=== PATIENT | female | born 1950 | race Caucasian/White ===

== ENCOUNTER 2017-06-08 09:28 | Inpatient (IN) | payer MEDICARE, MEDICAID ==
[2017-06-08] MEDS ORDERED: Ondansetron INJ* 2 MG/ML VIAL IV ONE ×3 (10:50→11:48)
[2017-06-08] MEDS ORDERED: NS 0.9% 1000 ML* 1,000 ML IV ONE ×2 (10:50→10:59)
[2017-06-08 11:25] LABS: Hematocrit 47 % (35-47); Hemoglobin 15.3 g/dl (12.0-16.0); Mean Corpuscular HGB Conc 33 g/dl (31-36); Mean Corpuscular Hemoglobin 29 pg (27-31); Mean Corpuscular Volume 89 fL (80-97); Mean Platelet Volume 7 um3 (7.4-10.4); Red Blood Count 5.33 10^6/ul (4.0-5.4); Red Cell Distribution Width 13 % (10.5-15); White Blood Count 17.2 10^3/ul (3.5-10.8)
[2017-06-08 11:37] LABS: Albumin 3.9 g/dL (3.2-5.2); BUN/Creatinine Ratio 13.7 (8-20); C Reactive Protein 32.11 mg/L (< 5.00); Calcium 8.7 mg/dL (8.6-10.3); EGFR African American 75.7 (>60); EGFR Non-African American 58.9 (>60); Globulin 2.5 g/dL (2-4); Magnesium 1.9 mg/dL (1.9-2.7); Potassium 3.7 mmol/L (3.5-5.0); Total Bilirubin 0.7 mg/dL (0.2-1.0); Total Protein 6.4 g/dL (6.4-8.9)
[2017-06-08 11:38] LABS: Troponin I 0.01 ng/mL (<0.04)
[2017-06-08] MEDS ORDERED: Ondansetron INJ* 2 MG/ML VIAL ONE (11:47)
[2017-06-08 12:07] LABS: Urine Bacteria Absent (Absent); Urine Bilirubin Negative (Negative); Urine Glucose Negative (Negative); Urine Nitrite Negative (Negative)
[2017-06-08] MEDS ORDERED: Iodixanol* (CONTRAST) 320 MG/ML 100 ML SDV IV ONE (13:19)
--- NOTE | 2017-06-08 13:54 | RAD ---
Indication: History of small bowel obstruction, abdominal pain. Contrast: Administered 90.9 ml of VISAPAQUE 320 mgi/ml CT of the abdomen and pelvis was performed after oral and IV contrast administration. Coronal and sagittal reconstructed images were obtained. Lung bases demonstrate no pleural fluid, nodules or masses. Heart is of normal size without evidence of pericardial effusion. Liver is normal in size. No focal lesions or intrahepatic duct dilatation is noted. The spleen is normal in size. The pancreas demonstrates no mass or pancreatic duct dilatation. No adrenal masses are noted. The kidneys demonstrate symmetric nephrograms. Cyst is noted in the lower pole of the left kidney measuring 5 cm. Atherosclerotic aorta is noted. No retroperitoneal adenopathy is noted. The spleen is normal in size. Small bowel demonstrates no abnormal dilatation. There is submucosal edema in the transverse colon near the splenic flexure extending to the descending colon and sigmoid colon. This may represent an element of colitis. Additionally there is diverticula in the sigmoid colon with wall thickening. No definite peridiverticular abscess is noted. Diverticulitis is not excluded. No free fluid is identified. No evidence of small bowel obstruction is noted. IMPRESSION: LONG SEGMENT SUBMUCOSAL EDEMA IN THE TRANSVERSE COLON EXTENDING TO THE DESCENDING COLON WITH PERICOLONIC INFILTRATION OF FAT SUSPICIOUS FOR COLITIS. ADDITIONALLY THERE ARE DIVERTICULA WITH WALL THICKENING IN THE SIGMOID COLON WHICH MAY REPRESENT UNDERLYING DIVERTICULITIS. NO PERIDIVERTICULAR OR PERICOLONIC ABSCESS IS NOTED. NO FREE FLUID IS NOTED IN THE PELVIS.
[2017-06-08] MEDS ORDERED: Ciprofloxacin 400MG IVPREMIX(* 400 MG/200 ML BAG IVPB ONE (14:03)
[2017-06-08] MEDS ORDERED: metroNIDAZOLE IV 500 MG/100ML* 500 MG/100 ML BAG IVPB ONE (14:04)
[2017-06-08] MEDS ORDERED: Metoclopramide IV* 5 MG/ML 2 ML VIAL IV ONE (14:05)
[2017-06-08] MEDS ORDERED: Morphine INJ* 10 MG/ML 1 ML SYRINGE IV ONE (14:05)
[2017-06-08] MEDS ORDERED: Ondansetron INJ* 2 MG/ML VIAL IV PRN (15:19)
[2017-06-08] MEDS ORDERED: Morphine INJ* 4 MG/ML 1 ML SYRINGE IV PRN (15:19)
--- NOTE | 2017-06-08 18:15 | ED ---
Davis Paulino Rebecca, scribed for Samuel Garcia MD on 06/08/17 at 1058 . Abdominal Pain/Female - HPI Summary HPI Summary: Pt is a 67 y/o F who presents to ED c/o abd pain. Pain began 2 nights ago at 0300 after an episode of diarrhea. Pain was initially severe, ranked 9/10 but has improved since onset, currently being moderate, ranked 6/10. Pain is in the LLQ with new onset radiation to the back. Sx aggravated and alleviated by nothing. Additionally c/o rectal bleeding, diarrhea 2 nights ago, constipation since episode of diarrhea, nausea, fever, chills and decreased PO intake. Rectal blood is "pure red" and the mucous is dark. Denies CP, SOB. Reports that she is not passing gas. Last colonoscopy was last summer with Kayden Mcfadden. is not on blood thinners. PMHx bowel obstruction requiring 2 surgeries in 1988. - History of Current Complaint Chief Complaint: EDAbdPain Stated Complaint: ABD PAIN/BLOOD IN STOOL Time Seen by Provider: 06/08/17 10:46 Hx Obtained From: Patient Onset/Duration: Lasting Days - 2 days, Still Present Severity Initially: Severe - 9/10 Severity Currently: Moderate Pain Intensity: 6 Pain Scale Used: 0-10 Numeric Location: Discrete At: LLQ Radiates: Yes Radiates to: Back Aggravating Factor(s): Nothing Alleviating Factor(s): Nothing Associated Signs and Symptoms: Positive: Fever, Constipation, Nausea, Diarrhea - one episode Allergies/Adverse Reactions: Allergies Allergy/AdvReac Type Severity Reaction Status Date / Time Pravastatin Allergy Muscle Ache Verified 06/08/17 10:53 Tetracycline Allergy Vomiting Verified 06/08/17 10:53 Home Medications: Home Medications Albuterol/Ipratropium RESP(NF) [Combivent Respimat(NF)] 1 puff INH BID 06/08/17 [History Confirmed 06/08/17] Bupropion XL* [Wellbutrin XL *] 150 mg PO DAILY 06/08/17 [History Confirmed 05/18] Lisinopril TAB* [Prinivil TAB*] 5 mg PO DAILY 06/08/17 [History Confirmed ] Mometasone 220 MCG MDI * [Asmanex 220 MCG MDI *] 1 puff INH BID 06/08/17 [ History Confirmed 06/08/17] PMH/Surg Hx/FS Hx/Imm Hx Cardiovascular History: Reports: Hx Hypercholesterolemia - borderline, Hx Hypertension Respiratory History: Reports: Hx Chronic Obstructive Pulmonary Disease (COPD) GI History: Reports: Hx Obstructive Bowel - Surgical History Surgery Procedure, Year, and Place: 2 bowel obstruction surgeries in 1988 Infectious Disease History: No Infectious Disease History: Denies: Traveled Outside the [place] in Last 30 Days - Family History Known Family History: Positive: Other - Cancer - Social History Alcohol Use: None Substance Use Type: Reports: None Smoking Status (MU): Former Smoker - Quit 3.5 years ago Review of Systems Positive: Fever, Chills Negative: Chest Pain Negative: Shortness Of Breath Positive: Abdominal Pain - LLQ, Diarrhea - one episode 2 nights ago, Nausea, Other - Constipation since episode of diarrhea, decreased PO intake Positive: other - Rectal bleeding All Other Systems Reviewed And Are Negative: Yes Physical Exam - Summary Physical Exam Summary: VITAL SIGNS: Reviewed. GENERAL: Patient is a well-developed and nourished female who is lying comfortable in the stretcher. ~Patient is not in any acute respiratory distress. HEAD AND FACE: Normocephalic and atraumatic. EYES: PERRLA, EOMI x 2, No injected conjunctiva. EARS: Hearing grossly intact. Ear canals and tympanic membranes are WNL. MOUTH: Oropharynx reveals dry mucous membranes. NECK: Supple, trachea is midline, no adenopathy, no JVD. CHEST: Symmetric, no tenderness at palpation LUNGS: Clear to auscultation bilaterally. No wheezing or crackles. CVS: RRR, S1 and S2 present, no murmurs or gallops appreciated. ABDOMEN: Soft, non-tender. No signs of distention. Decreased bowel sounds throughout. No rebound no guarding, and no masses palpated. No abdominal bruit or pulsations. Well healed surgical scar in the middle of the abdomen EXTREMITIES: FROM in all major joints, no edema, no cyanosis or clubbing. NEURO: Alert and oriented x 3. No acute neurological deficits. Speech is normal. SKIN: Dry and warm Triage Information Reviewed: Yes Vital Signs On Initial Exam: Initial Vitals Temp Pulse Resp BP Pulse Ox 97.7 F 110 16 152/101 94 06/08/17 09:34 06/08/17 09:34 06/08/17 09:34 06/08/17 09:34 06/08/17 09:34 Vital Signs Reviewed: Yes Diagnostics - Vital Signs Vital Signs Temp Pulse Resp BP Pulse Ox 06/08/17 10:47 95 20 94 06/08/17 10:46 151/85 06/08/17 10:42 99.4 F 98 16 151/85 94 06/08/17 09:34 97.7 F 110 16 152/101 94 - Laboratory Lab Results: Lab Results 06/08/17 06/08/17 06/08/17 Range/Units 11:11 11:11 11:11 WBC 17.2 H (3.5-10.8) 10^3/ul RBC 5.33 (4.0-5.4) 10^6/ul Hgb 15.3 (12.0-16.0) g/dl Hct 47 (35-47) % MCV 89 (80-97) fL MCH 29 (27-31) pg MCHC 33 (31-36) g/dl RDW 13 (10.5-15) % Plt Count 200 (150-450) 10^3/ul MPV 7 L (7.4-10.4) um3 Neut % (Auto) 66.6 (38-83) % Lymph % (Auto) 26.8 (25-47) % [place] % (Auto) 6.0 (1-9) % Eos % (Auto) 0.1 (0-6) % Baso % (Auto) 0.5 (0-2) % Absolute Neuts (auto) 11.4 H (1.5-7.7) 10^3/ul Absolute Lymphs (auto) 4.6 (1.0-4.8) 10^3/ul Absolute Monos (auto) 1.0 H (0-0.8) 10^3/ul Absolute Eos (auto) 0 (0-0.6) 10^3/ul Absolute Basos (auto) 0.1 (0-0.2) 10^3/ul Absolute Nucleated RBC 0 10^3/ul Nucleated RBC % 0 Sodium 134 (133-145) mmol/L Potassium 3.7 (3.5-5.0) mmol/L Chloride 102 (101-111) mmol/L Carbon Dioxide 26 (22-32) mmol/L Anion Gap 6 (2-11) mmol/L BUN 13 (6-24) mg/dL Creatinine 0.95 (0.51-0.95) mg/dL Est GFR ( Amer) 75.7 (>60) Est GFR (Non-Af Amer) 58.9 (>60) BUN/Creatinine Ratio 13.7 (8-20) Glucose 113 H (70-100) mg/dL Lactic Acid 0.9 (0.5-2.0) mmol/L Calcium 8.7 (8.6-10.3) mg/dL Magnesium 1.9 (1.9-2.7) mg/dL Total Bilirubin 0.70 (0.2-1.0) mg/dL AST 20 (13-39) U/L ALT 14 (7-52) U/L Alkaline Phosphatase 76 (34-104) U/L Troponin I 0.01 (<0.04) ng/mL C-Reactive Protein 32.11 H (< 5.00) mg/L Total Protein 6.4 (6.4-8.9) g/dL Albumin 3.9 (3.2-5.2) g/dL Globulin 2.5 (2-4) g/dL Albumin/Globulin Ratio 1.6 (1-3) Amylase 80 (29-103) U/L Lipase 25 (11.0-82.0) U/L Urine Color Urine Appearance Urine pH (5-9) Ur Specific [place] (1.010-1.030) Urine Protein (Negative) Urine Ketones (Negative) Urine Blood (Negative) Urine Nitrate (Negative) Urine Bilirubin (Negative) Urine Urobilinogen (Negative) Ur Leukocyte Esterase (Negative) Urine WBC (Auto) (Absent) Urine RBC (Auto) (Absent) Ur Squamous Epith Cells (Absent) Urine Bacteria (Absent) Urine Glucose (Negative) 06/08/17 Range/Units 11:28 WBC (3.5-10.8) 10^3/ul RBC (4.0-5.4) 10^6/ul Hgb (12.0-16.0) g/dl Hct (35-47) % MCV (80-97) fL MCH (27-31) pg MCHC (31-36) g/dl RDW (10.5-15) % Plt Count (150-450) 10^3/ul MPV (7.4-10.4) um3 Neut % (Auto) (38-83) % Lymph % (Auto) (25-47) % [place] % (Auto) (1-9) % Eos % (Auto) (0-6) % Baso % (Auto) (0-2) % Absolute Neuts (auto) (1.5-7.7) 10^3/ul Absolute Lymphs (auto) (1.0-4.8) 10^3/ul Absolute Monos (auto) (0-0.8) 10^3/ul Absolute Eos (auto) (0-0.6) 10^3/ul Absolute Basos (auto) (0-0.2) 10^3/ul Absolute Nucleated RBC 10^3/ul Nucleated RBC % Sodium (133-145) mmol/L Potassium (3.5-5.0) mmol/L Chloride (101-111) mmol/L Carbon Dioxide (22-32) mmol/L Anion Gap (2-11) mmol/L BUN (6-24) mg/dL Creatinine (0.51-0.95) mg/dL Est GFR ( Amer) (>60) Est GFR (Non-Af Amer) (>60) BUN/Creatinine Ratio (8-20) Glucose (70-100) mg/dL Lactic Acid (0.5-2.0) mmol/L Calcium (8.6-10.3) mg/dL Magnesium (1.9-2.7) mg/dL Total Bilirubin (0.2-1.0) mg/dL AST (13-39) U/L ALT (7-52) U/L Alkaline Phosphatase (34-104) U/L Troponin I (<0.04) ng/mL C-Reactive Protein (< 5.00) mg/L Total Protein (6.4-8.9) g/dL Albumin (3.2-5.2) g/dL Globulin (2-4) g/dL Albumin/Globulin Ratio (1-3) Amylase (29-103) U/L Lipase (11.0-82.0) U/L Urine Color Straw Urine Appearance Clear Urine pH 6.0 (5-9) Ur Specific [place] 1.004 L (1.010-1.030) Urine Protein Negative (Negative) Urine Ketones Negative (Negative) Urine Blood 2+ H (Negative) Urine Nitrate Negative (Negative) Urine Bilirubin Negative (Negative) Urine Urobilinogen Negative (Negative) Ur Leukocyte Esterase 2+ H (Negative) Urine WBC (Auto) Trace(0-5/hpf) (Absent) Urine RBC (Auto) 1+(3-5/hpf) H (Absent) Ur Squamous Epith Cells Present H (Absent) Urine Bacteria Absent (Absent) Urine Glucose Negative (Negative) Result Diagrams: 06/08/17 11:11 06/08/17 11:11 Lab Statement: Any lab studies that have been ordered have been reviewed, and results considered in the medical decision making process. - CT CT Abd/Pel CT Interpretation Completed By: Radiologist - LONG SEGMENT SUBMUCOSAL EDEMA IN THE TRANSVERSE COLON EXTENDING TO THE DESCENDING COLON WITH PERICOLONIC INFILTRATION OF FAT SUSPICIOUS FOR COLITIS. ADDITIONALLY THERE ARE DIVERTICULA WITH WALL THICKENING IN THE SIGMOID COLON WHICH MAY REPRESENT UNDERLYING DIVERTICULITIS. NO PERIDIVERTICULAR OR PERICOLONIC ABSCESS IS NOTED. NO FREE FLUID IS NOTED IN THE PELVIS. - EKG 1127 Cardiac Rate: NL - 99 bpm EKG Rhythm: Sinus Rhythm EKG Interpretation: ST depressions in V4, V5, V6 Re-Evaluation - Re-Evaluation First Eval Re-Evaluation Time: 14:04 Change: Unchanged Comment: Still in a lot of pain and experiencing nausea. Discussed CT results with the pt. Abdominal Pain Fem Course/Dx - Course Course Of Treatment: Pt is a 67 y/o F who presents to ED c/o abd pain. Pain began 2 nights ago at 0300 after an episode of diarrhea. Pain was initially severe, ranked 9/10 but has improved since onset, currently being moderate, ranked 6/10. Pain is in the LLQ with new onset radiation to the back. Sx aggravated and alleviated by nothing. Additionally c/o rectal bleeding, diarrhea 2 nights ago, constipation since episode of diarrhea, nausea, fever, chills and decreased PO intake. Rectal blood is "pure red" and the mucous is dark. Denies CP, SOB. Reports that she is not passing gas. Last colonoscopy was last summer with Kayden Mcfadden. is not on blood thinners. PMHx bowel obstruction requiring 2 surgeries in 1988. Test results show a WBC of 17.2 without any bands, glucose of 113, CRP of 32.1 and UA is contaminated therefore we will send for urine cultures. In the ED course, the pt was given fluids, Zofran for N/V, morphine for the pain. She continues to have N/V, therefore the pt was given Reglan. The Abd/Pel CT reveals LONG SEGMENT SUBMUCOSAL EDEMA IN THE TRANSVERSE COLON EXTENDING TO THE DESCENDING COLON WITH PERICOLONIC INFILTRATION OF FAT SUSPICIOUS FOR COLITIS. ADDITIONALLY THERE ARE DIVERTICULA WITH WALL THICKENING IN THE SIGMOID COLON WHICH MAY REPRESENT UNDERLYING DIVERTICULITIS. NO PERIDIVERTICULAR OR PERICOLONIC ABSCESS IS NOTED. NO FREE FLUID IS NOTED IN THE PELVIS.. Seeing as how this shows that the pt has colitis and diverticulitis, the pt was started on Ciprofloxacin and Flagyl. At this time I disclosed the case with Dr. Delaney who accepted the pt for admission. The pt is hemodynamically stable and A&Ox3. - Diagnoses Provider Diagnoses: Colitis, Diverticulitis - Provider Notifications Discussed Care Of Patient With: Manfred Delaney Time Discussed With Above Provider: 14:35 Instructed by Provider To: Other - Accepts pt for admission. Discharge - Discharge Plan Condition: Good Disposition: ADMITTED TO [facility] documentation as recorded by the [place] Rebecca accurately reflects the service I personally performed and the decisions made by , Samuel Garcia MD.
[2017-06-08] MEDS: NS 0.9% 1000 ML* 1,000 ML IV SCH (18:47)
--- NOTE | 2017-06-08 20:21 | HP ---
HOSPITAL MEDICINE HISTORY AND PHYSICAL: DATE OF ADMISSION: 06/08/17 PRIMARY CARE PHYSICIAN: None. ATTENDING PHYSICIAN: Manfred Delaney MD * (dictation provided by Tosha Stephens NP ). CHIEF COMPLAINT: Nausea, vomiting, abdominal pain, and bloody diarrhea. HISTORY OF PRESENT ILLNESS: Ms. Castañeda is a 67-year-old female with a past medical history of what she describes as intestinal twisting with surgeries x2, as well as a hysterectomy, hypertension, and anxiety, who presents today to the hospital with concern for nausea, vomiting, abdominal pain and bright red blood per rectum. Ms. Castañeda states she was in her normal state of health with no acute complaints up until 3 days ago. Three days ago, she developed abdominal pain in the left upper quadrant associated with nausea and vomiting. She began to have some bright red blood per rectum. She was seen in the emergency room at [facility] in [place] yesterday. They advised her that she should follow with Gastroenterology and the patient called and the appointment was planned for Thursday; however, in the ensuing 24 hours, the patient continued to have worsening pain with what she felt were fevers, although she did not take her temperature. She also had persistent nausea, vomiting and bloody stool. In the emergency room, Ms. Castañeda had white blood cell count elevated to 17.2. She is afebrile at this point. Her heart rate is slightly up to about 100 with blood pressure at 161/97. The remainder of her labs are unremarkable. She had an abdomen and pelvis CT, which showed "long submucosal edema in the transverse colon extending to the descending colon with pericolonic infiltration and fat suspicious for colitis. There was also concern for possible underlying diverticulitis." PAST MEDICAL HISTORY: 1. "Intestinal twisting" with surgeries x2. 2. Hysterectomy at the age of 28. 3. Hypertension. 4. Anxiety. 5. Skin cancer. MEDICATIONS: 1. Combivent 1 puff inhaled b.i.d. 2. Bupropion XL 150 mg p.o. daily. 3. Lisinopril 5 mg p.o. daily. 4. Mometasone 220 mcg 1 puff inhaled b.i.d. ALLERGIES: PRAVASTATIN and TETRACYCLINE. FAMILY HISTORY: The patient reports her mother had breast cancer and a mastectomy. Sister related to ovarian cancer, another sister has vaginal cancer. Her dad related to leukemia. SOCIAL HISTORY: The patient is a long-term smoker, but quit 3-1/2 years ago. There is no report of alcohol or drug use. She states her daughter, Anabel, would be the healthcare proxy. REVIEW OF SYSTEMS: A 14-point review of systems was completed with Ms. Castañeda today, and all those not mentioned above were negative. PHYSICAL EXAMINATION GENERAL: Ms. Castañeda is sleeping when I walk into the room, but she awakens easily to voice. VITAL SIGNS: Temperature 99.4, heart rate 96, respiratory rate 17, O2 saturation 98% on room air, blood pressure 161/97. LUNGS: Clear to auscultation bilaterally with no accessory muscle use and good aeration. HEART: S1, S2. No murmur, rub, or gallop, and regular. ABDOMEN: Soft. There is tenderness along the left side, upper and lower quadrant. Bowel sounds are hypoactive. There is no rebound, tenderness or guarding. EXTREMITIES: No cyanosis or edema. NEUROLOGIC: She is alert and oriented x3. She moves all extremities equally. There is no facial asymmetry or focal weakness. Extraocular movements are intact. SKIN: Intact. DIAGNOSTIC STUDIES/LAB DATA: WBC 17.2, hemoglobin 15.3, hematocrit 47, platelet count 200,000. Sodium 134, potassium 3.7, chloride 102, serum bicarbonate 26, BUN 13, creatinine 0.95, glucose 113, lactic acid 0.9. Troponin 0.01. CRP 32.11. Lipase 25, amylase 80. Urine shows 2+ leuk esterase , but no bacteria and present squamous cells. EKG shows sinus rhythm with the heart rate almost 100, but no evidence of ischemia. ASSESSMENT/PLAN: Ms. Castañeda is a 67-year-old female with a past medical history of intestinal surgery due to intestinal torsion as well as a hysterectomy and hypertension, who presents today to the hospital with concern for nausea, vomiting, abdominal pain and bright red blood per rectum. Our plans are for inpatient admission as I expect her length of stay to be greater than 2 days for the followin. Nausea, vomiting, abdominal pain, bright red blood per rectum: I suspect that these symptoms are secondary to infectious colitis. The patient's white blood cell count is elevated. She reports feeling feverish at home. She also has a CT scan that has inflammatory changes consistent with colitis in the colon. Our plans are for admission for IV fluids, and Cipro and Flagyl for antibiotic coverage. The patient will have ice chips only through the evening and we are going to advance diet when she is improved clinically. Fortunately, she is not febrile here. Her vital signs are stable. Her white blood cell count is elevated. We will recheck that in the morning. Her CRP is only 32.11. The patient does not know of any recent ingestion that was suspicious for possibly causing an infectious colitis, but stool cultures will be sent. 2. Question UTI. Suspect contamination. Wait urine cultures. Patient will be on cipro for coverage of infectious colitis which should cover for UTI as well if present. 2. Hypertension. Plan to hold lisinopril during an acute illness. 3. Asthma. Hold mometasone, but the patient can have Combivent if needed. 4. Depression. Plan to hold bupropion while she is acutely ill. 5. DVT prophylaxis, heparin subcu. 6. Disposition to the medical floor. TIME SPENT: Approximately 60 minutes was spent on the admission of this patient ; more than half time was spent with the patient at the bedside reviewing the events leading up to this hospitalization, performing the physical examination, and reviewing my plan of care. TOSHA STEPHENS NP [id number]/[facility] #: [id number] APRIL
[2017-06-08] MEDS: Heparin VIAL(*) 5000 UNITS/ML VIAL (FIVE THOUSAND) SUBCUT SCH (21:19)
[2017-06-08] MEDS: metroNIDAZOLE IV 500 MG/100ML* 500 MG/100 ML BAG IVPB SCH (23:58)
[2017-06-09] MEDS ORDERED: Albuterol HFA INHALER* 8 gm MDI INH PRN (00:15)
[2017-06-09] MEDS ORDERED: Albuterol/Ipratropium NEB.SOL* Albuterol 2.5 MG/Ipratropium 0.5 MG 3 ML INH PRN (00:44)
[2017-06-09] MEDS ORDERED: Mometasone 220 MCG MDI INH SCH ×3 (01:00→22:00)
[2017-06-09] MEDS: Ciprofloxacin 400MG IVPREMIX(* 400 MG/200 ML BAG IVPB SCH ×2 (02:24→14:31)
[2017-06-09] MEDS: Heparin VIAL(*) 5000 UNITS/ML VIAL (FIVE THOUSAND) SUBCUT SCH ×3 (05:28→20:36)
[2017-06-09 06:00] LABS: Hematocrit 40 % (35-47); Hemoglobin 13.1 g/dl (12.0-16.0); Mean Corpuscular HGB Conc 33 g/dl (31-36); Mean Corpuscular Hemoglobin 29 pg (27-31); Mean Corpuscular Volume 90 fL (80-97); Mean Platelet Volume 7 um3 (7.4-10.4); Red Blood Count 4.49 10^6/ul (4.0-5.4); Red Cell Distribution Width 13 % (10.5-15); White Blood Count 16.4 10^3/ul (3.5-10.8)
[2017-06-09 06:16] LABS: Potassium 3.6 mmol/L (3.5-5.0)
[2017-06-09 06:17] LABS: Calcium 7.8 mg/dL (8.6-10.3); EGFR African American 99.4 (>60); EGFR Non-African American 77.3 (>60)
[2017-06-09] MEDS: NS 0.9% 1000 ML* 1,000 ML IV SCH ×2 (07:40→22:00)
[2017-06-09] MEDS: metroNIDAZOLE IV 500 MG/100ML* 500 MG/100 ML BAG IVPB SCH ×2 (07:40→16:40)
--- NOTE | 2017-06-09 08:32 | PN ---
Subjective Date of Service: 06/09/17 Interval History: Patient seen and examined at bedside. Ms. Castañeda reports 3 days of abdominal pain with n/v that has worsened in severity. She also reports BRBPR. She does feel as if her pain and n/v symptoms have improved with initiation of antibiotics. She still has some abdominal pain but less n/v; still c/o BRBPR. She does not feel hungry. Denies fever/chills, CP, SOB. Family History: Unchanged from Admission Social History: Unchanged from Admission Past Medical History: Unchanged from Admission Objective Active Medications: Albuterol (Ventolin Hfa Inhaler*) 2 puff INH Q4H PRN PRN Reason: SOB/WHEEZING Last Admin: 06/09/17 00:39 Dose: 2 puff Albuterol/Ipratropium (Duoneb (Albuterol 2.5 Mg/Ipratropium 0.5 Mg)) 1 neb INH Q6H PRN PRN Reason: SOB/WHEEZING Last Admin: 06/09/17 08:09 Dose: 1 neb Heparin Sodium (Porcine) (Heparin Vial(*)) 5,000 units SUBCUT Q8HR AIDEE Last Admin: 06/09/17 05:28 Dose: 5,000 units Sodium Chloride (Ns 0.9% 1000 Ml*) 1,000 mls @ 100 mls/hr IV PER RATE [facility] Last Admin: 06/09/17 07:40 Dose: 100 mls/hr Ciprofloxacin/Dextrose (Cipro 400 Mg Ivpremix(*)) 400 mg in 200 mls @ 200 mls/ hr IVPB Q12H AIDEE Last Admin: 06/09/17 02:24 Dose: 200 mls/hr Metronidazole/Sodium Chloride (Flagyl 500 Mg Ivpb*) 500 mg in 100 mls @ 100 mls /hr IVPB Q8H AIDEE Last Admin: 06/09/17 07:40 Dose: 100 mls/hr Mometasone Furoate (Asmanex 220 Mcg Mdi *) 2 puff INH BEDTIME AIDEE PRN Reason: Protocol Morphine Sulfate (Morphine Inj (Syringe)*) 4 mg IV Q4H PRN PRN Reason: PAIN Last Admin: 06/08/17 17:05 Dose: 4 mg Ondansetron HCl (Zofran Inj*) 4 mg IV Q4H PRN PRN Reason: nausea Vital Signs 06/08/17 06/08/17 06/08/17 15:35 17:05 19:27 Temperature 98.2 F 97.5 F Pulse Rate 89 92 Respiratory 18 18 20 Rate Blood Pressure 150/89 135/77 (mmHg) O2 Sat by Pulse 99 98 Oximetry 06/08/17 06/08/17 06/08/17 19:36 20:00 23:15 Temperature 98.5 F Pulse Rate 100 Respiratory 18 20 16 Rate Blood Pressure 126/69 (mmHg) O2 Sat by Pulse 98 Oximetry 06/08/17 06/09/17 06/09/17 23:43 03:47 08:00 Temperature 98.5 F 98.1 F Pulse Rate 100 101 Respiratory 16 20 16 Rate Blood Pressure 126/69 115/69 (mmHg) O2 Sat by Pulse 98 99 Oximetry 06/09/17 06/09/17 08:02 08:15 Temperature 98.2 F Pulse Rate 102 102 Respiratory 16 16 Rate Blood Pressure 122/71 (mmHg) O2 Sat by Pulse 98 99 Oximetry Oxygen Devices in Use Now: Nasal Cannula Appearance: Female patient, sitting on edge of bed, in NAD Eyes: No Scleral Icterus Ears/Nose/Mouth/Throat: Clear Oropharnyx, Mucous Membranes Moist Neck: NL Appearance and Movements; NL JVP Respiratory: Symmetrical Chest Expansion and Respiratory Effort, Clear to Auscultation Cardiovascular: NL Sounds; No Murmurs; No JVD, RRR Abdominal: - - BS present, tenderness with palpation to LUQ/LLQ, abd soft Extremities: No Edema Neurological: Alert and Oriented x 3, NL Muscle Strength and Tone Lines/Tubes/Other Access: Clean, Dry and Intact Peripheral IV Result Diagrams: 06/09/17 05:46 06/09/17 05:46 Additional Lab and Data: Lab Results 06/08/17 06/08/17 06/08/17 Range/Units 11:11 11:11 11:11 WBC 17.2 H (3.5-10.8) 10^3/ul RBC 5.33 (4.0-5.4) 10^6/ul Hgb 15.3 (12.0-16.0) g/dl Hct 47 (35-47) % MCV 89 (80-97) fL MCH 29 (27-31) pg MCHC 33 (31-36) g/dl RDW 13 (10.5-15) % Plt Count 200 (150-450) 10^3/ul MPV 7 L (7.4-10.4) um3 Neut % (Auto) 66.6 (38-83) % Lymph % (Auto) 26.8 (25-47) % [place] % (Auto) 6.0 (1-9) % Eos % (Auto) 0.1 (0-6) % Baso % (Auto) 0.5 (0-2) % Absolute Neuts (auto) 11.4 H (1.5-7.7) 10^3/ul Absolute Lymphs (auto) 4.6 (1.0-4.8) 10^3/ul Absolute Monos (auto) 1.0 H (0-0.8) 10^3/ul Absolute Eos (auto) 0 (0-0.6) 10^3/ul Absolute Basos (auto) 0.1 (0-0.2) 10^3/ul Absolute Nucleated RBC 0 10^3/ul Nucleated RBC % 0 Sodium 134 (133-145) mmol/L Potassium 3.7 (3.5-5.0) mmol/L Chloride 102 (101-111) mmol/L Carbon Dioxide 26 (22-32) mmol/L Anion Gap 6 (2-11) mmol/L BUN 13 (6-24) mg/dL Creatinine 0.95 (0.51-0.95) mg/dL Est GFR ( Amer) 75.7 (>60) Est GFR (Non-Af Amer) 58.9 (>60) BUN/Creatinine Ratio 13.7 (8-20) Glucose 113 H (70-100) mg/dL Lactic Acid 0.9 (0.5-2.0) mmol/L Calcium 8.7 (8.6-10.3) mg/dL Magnesium 1.9 (1.9-2.7) mg/dL Total Bilirubin 0.70 (0.2-1.0) mg/dL AST 20 (13-39) U/L ALT 14 (7-52) U/L Alkaline Phosphatase 76 (34-104) U/L Troponin I 0.01 (<0.04) ng/mL C-Reactive Protein 32.11 H (< 5.00) mg/L Total Protein 6.4 (6.4-8.9) g/dL Albumin 3.9 (3.2-5.2) g/dL Globulin 2.5 (2-4) g/dL Albumin/Globulin Ratio 1.6 (1-3) Amylase 80 (29-103) U/L Lipase 25 (11.0-82.0) U/L Urine Color Urine Appearance Urine pH (5-9) Ur Specific [place] (1.010-1.030) Urine Protein (Negative) Urine Ketones (Negative) Urine Blood (Negative) Urine Nitrate (Negative) Urine Bilirubin (Negative) Urine Urobilinogen (Negative) Ur Leukocyte Esterase (Negative) Urine WBC (Auto) (Absent) Urine RBC (Auto) (Absent) Ur Squamous Epith Cells (Absent) Urine Bacteria (Absent) Urine Glucose (Negative) 06/08/17 Range/Units 11:28 WBC (3.5-10.8) 10^3/ul RBC (4.0-5.4) 10^6/ul Hgb (12.0-16.0) g/dl Hct (35-47) % MCV (80-97) fL MCH (27-31) pg MCHC (31-36) g/dl RDW (10.5-15) % Plt Count (150-450) 10^3/ul MPV (7.4-10.4) um3 Neut % (Auto) (38-83) % Lymph % (Auto) (25-47) % [place] % (Auto) (1-9) % Eos % (Auto) (0-6) % Baso % (Auto) (0-2) % Absolute Neuts (auto) (1.5-7.7) 10^3/ul Absolute Lymphs (auto) (1.0-4.8) 10^3/ul Absolute Monos (auto) (0-0.8) 10^3/ul Absolute Eos (auto) (0-0.6) 10^3/ul Absolute Basos (auto) (0-0.2) 10^3/ul Absolute Nucleated RBC 10^3/ul Nucleated RBC % Sodium (133-145) mmol/L Potassium (3.5-5.0) mmol/L Chloride (101-111) mmol/L Carbon Dioxide (22-32) mmol/L Anion Gap (2-11) mmol/L BUN (6-24) mg/dL Creatinine (0.51-0.95) mg/dL Est GFR ( Amer) (>60) Est GFR (Non-Af Amer) (>60) BUN/Creatinine Ratio (8-20) Glucose (70-100) mg/dL Lactic Acid (0.5-2.0) mmol/L Calcium (8.6-10.3) mg/dL Magnesium (1.9-2.7) mg/dL Total Bilirubin (0.2-1.0) mg/dL AST (13-39) U/L ALT (7-52) U/L Alkaline Phosphatase (34-104) U/L Troponin I (<0.04) ng/mL C-Reactive Protein (< 5.00) mg/L Total Protein (6.4-8.9) g/dL Albumin (3.2-5.2) g/dL Globulin (2-4) g/dL Albumin/Globulin Ratio (1-3) Amylase (29-103) U/L Lipase (11.0-82.0) U/L Urine Color Straw Urine Appearance Clear Urine pH 6.0 (5-9) Ur Specific [place] 1.004 L (1.010-1.030) Urine Protein Negative (Negative) Urine Ketones Negative (Negative) Urine Blood 2+ H (Negative) Urine Nitrate Negative (Negative) Urine Bilirubin Negative (Negative) Urine Urobilinogen Negative (Negative) Ur Leukocyte Esterase 2+ H (Negative) Urine WBC (Auto) Trace(0-5/hpf) (Absent) Urine RBC (Auto) 1+(3-5/hpf) H (Absent) Ur Squamous Epith Cells Present H (Absent) Urine Bacteria Absent (Absent) Urine Glucose Negative (Negative) Microbiology and Other Data: Microbiology 06/09/17 03:50 Stool Gross Appearance - Final Stool Diagnostic Imaging: CT abd/pelvis: IMPRESSION: LONG SEGMENT SUBMUCOSAL EDEMA IN THE TRANSVERSE COLON EXTENDING TO THE DESCENDING COLON WITH PERICOLONIC INFILTRATION OF FAT SUSPICIOUS FOR COLITIS. ADDITIONALLY THERE ARE DIVERTICULA WITH WALL THICKENING IN THE SIGMOID COLON WHICH MAY REPRESENT UNDERLYING DIVERTICULITIS. NO PERIDIVERTICULAR OR PERICOLONIC ABSCESS IS NOTED. NO FREE FLUID IS NOTED IN THE PELVIS. Assess/Plan/Problems-Billing Assessment: Ms. Castañeda is a 67 yo female with a PMH of intestinal surgery, HTN, anxiety, and asthma who presented to the ED on 06/08/17 with abd pain n/v/d and BRBPR that is secondary to colitis. - Patient Problems (1) Infectious colitis Code(s): A09 - INFECTIOUS GASTROENTERITIS AND COLITIS, UNSPECIFIED Comment: With accompanying n/v/d, BRBPR Pt reports symptoms improving WBC now trending down, afebrile CT abd/pelvis shows inflammatory changes consistent with colitis. Continue IVF, ciprofloxacin, metronidazole Continue ice chips, advance to clears if patient continues to improve over the course of the day. Stool studies pending (2) UTI (urinary tract infection) Comment: Suspected UA shows 2+ leukocyte esterase Urine cx pending Continue ciprofloxacin (also treating patient's colitis) (3) HTN (hypertension) Code(s): I10 - ESSENTIAL (PRIMARY) HYPERTENSION Comment: Normotensive Continue to hold lisinopril Resume when medically appropriate (4) Asthma Code(s): J45.909 - UNSPECIFIED ASTHMA, UNCOMPLICATED Comment: Stable Patient on supplemental O2, secondary to pain and narcotic use Continue home Combivent and Asmanex inhalers (5) Anxiety and depression Code(s): F41.8 - OTHER SPECIFIED ANXIETY DISORDERS Comment: Resume bupropion when patient able to tolerate PO. (6) DVT prophylaxis Comment: SQ heparin Status and Disposition: Inpatient admission. Anticipate LOS >2 days. D/c to home when medically stable.
[2017-06-09] MEDS: PTO: Albuterol/Ipratropium RESP(NF) MDI (Combivent Respimat) INH SCH ×3 (09:06→16:39)
[2017-06-09] MEDS ORDERED: PTO: Albuterol/Ipratropium RESP(NF) MDI (Combivent Respimat) INH SCH (21:00)
[2017-06-09] MEDS ORDERED: MOMETASONE 220 MCG INH SCH ×2 (21:00)
[2017-06-09] MEDS ORDERED: MDI INH SCH ×2 (21:00)
[2017-06-09] MEDS ORDERED: Albuterol/Ipratropium RESP(NF) MDI (Combivent Respimat) INH SCH (21:00)
[2017-06-10] MEDS: metroNIDAZOLE IV 500 MG/100ML* 500 MG/100 ML BAG IVPB SCH ×4 (00:08→23:52)
[2017-06-10] MEDS: Ciprofloxacin 400MG IVPREMIX(* 400 MG/200 ML BAG IVPB SCH ×2 (02:44→16:17)
[2017-06-10 06:25] LABS: EGFR African American 102.6 (>60); EGFR Non-African American 79.8 (>60); Potassium 3.5 mmol/L (3.5-5.0)
[2017-06-10] MEDS: Heparin VIAL(*) 5000 UNITS/ML VIAL (FIVE THOUSAND) SUBCUT SCH ×3 (06:30→21:28)
[2017-06-10 06:41] LABS: Hematocrit 40 % (35-47); Hemoglobin 13.3 g/dl (12.0-16.0); Mean Corpuscular HGB Conc 33 g/dl (31-36); Mean Corpuscular Hemoglobin 30 pg (27-31); Mean Corpuscular Volume 90 fL (80-97); Mean Platelet Volume 7 um3 (7.4-10.4); Red Blood Count 4.47 10^6/ul (4.0-5.4); Red Cell Distribution Width 13 % (10.5-15)
[2017-06-10] MEDS ORDERED: Albuterol/Ipratropium RESP(NF) MDI (Combivent Respimat) INH SCH (07:00)
[2017-06-10] MEDS: PTO: Albuterol/Ipratropium RESP(NF) MDI (Combivent Respimat) INH SCH ×4 (07:29→19:32)
--- NOTE | 2017-06-10 10:11 | PN ---
Subjective Date of Service: 06/10/17 Interval History: Patient seen and examined at bedside. Still reports some blood tinged stools with mucus. Abd pain has improved but still present. Reports LEE/dizziness earlier. Denies fever/chills, CP, SOB. Passing flatus. Patient tolerating clear liquids. Family History: Unchanged from Admission Social History: Unchanged from Admission Past Medical History: Unchanged from Admission Objective Active Medications: Albuterol (Ventolin Hfa Inhaler*) 2 puff INH Q4H PRN PRN Reason: SOB/WHEEZING Last Admin: 06/09/17 00:39 Dose: 2 puff Albuterol/Ipratropium (Duoneb (Albuterol 2.5 Mg/Ipratropium 0.5 Mg)) 1 neb INH Q6H PRN PRN Reason: SOB/WHEEZING Last Admin: 06/09/17 08:09 Dose: 1 neb Albuterol/Ipratropium (Combivent Respimat(Nf)) 1 puff INH RT.QID AIDEE PRN Reason: Protocol Last Admin: 06/10/17 07:29 Dose: 1 puff Bupropion HCl (Wellbutrin Xl *) 150 mg PO DAILY [facility] Heparin Sodium (Porcine) (Heparin Vial(*)) 5,000 units SUBCUT Q8HR [facility] Last Admin: 06/10/17 06:30 Dose: 5,000 units Sodium Chloride (Ns 0.9% 1000 Ml*) 1,000 mls @ 100 mls/hr IV PER RATE [facility] Last Admin: 06/09/17 22:00 Dose: 100 mls/hr Ciprofloxacin/Dextrose (Cipro 400 Mg Ivpremix(*)) 400 mg in 200 mls @ 200 mls/ hr IVPB Q12H [facility] Last Admin: 06/10/17 02:44 Dose: 200 mls/hr Metronidazole/Sodium Chloride (Flagyl 500 Mg Ivpb*) 500 mg in 100 mls @ 100 mls /hr IVPB Q8H [facility] Last Admin: 06/10/17 08:13 Dose: 100 mls/hr Lisinopril (Prinivil Tab*) 5 mg PO DAILY [facility] Mometasone Furoate (Asmanex 220 Mcg Mdi *) 1 puff INH BEDTIME AIDEE PRN Reason: Protocol Morphine Sulfate (Morphine Inj (Syringe)*) 4 mg IV Q4H PRN PRN Reason: PAIN Last Admin: 06/08/17 17:05 Dose: 4 mg Ondansetron HCl (Zofran Inj*) 4 mg IV Q4H PRN PRN Reason: nausea Vital Signs 06/09/17 06/09/17 06/09/17 11:37 16:11 19:41 Temperature 98.0 F 98.1 F 98.8 F Pulse Rate 98 95 93 Respiratory 18 20 20 Rate Blood Pressure 126/65 131/69 134/77 (mmHg) O2 Sat by Pulse 95 97 95 Oximetry 06/09/17 06/09/17 06/09/17 20:00 21:34 23:16 Temperature 98.2 F Pulse Rate 106 Respiratory 20 18 18 Rate Blood Pressure 153/79 (mmHg) O2 Sat by Pulse 96 85 Oximetry 06/10/17 06/10/17 04:10 07:29 Temperature 98.4 F Pulse Rate 108 111 Respiratory 13 16 Rate Blood Pressure 149/79 (mmHg) O2 Sat by Pulse 92 92 Oximetry Oxygen Devices in Use Now: Nasal Cannula Appearance: Older female, lying in bed, NAD Eyes: No Scleral Icterus Ears/Nose/Mouth/Throat: Clear Oropharnyx, Mucous Membranes Moist Neck: NL Appearance and Movements; NL JVP Respiratory: Symmetrical Chest Expansion and Respiratory Effort, Clear to Auscultation Cardiovascular: NL Sounds; No Murmurs; No JVD, RRR Abdominal: - - LUQ/LLQ tenderness, normoactive BS, abd soft Extremities: No Edema Neurological: Alert and Oriented x 3, NL Muscle Strength and Tone Lines/Tubes/Other Access: Clean, Dry and Intact Peripheral IV Nutrition: Taking PO's Result Diagrams: 06/10/17 06:31 06/10/17 05:41 Additional Lab and Data: Lab Results 06/08/17 06/08/17 06/08/17 Range/Units 11:11 11:11 11:11 WBC 17.2 H (3.5-10.8) 10^3/ul RBC 5.33 (4.0-5.4) 10^6/ul Hgb 15.3 (12.0-16.0) g/dl Hct 47 (35-47) % MCV 89 (80-97) fL MCH 29 (27-31) pg MCHC 33 (31-36) g/dl RDW 13 (10.5-15) % Plt Count 200 (150-450) 10^3/ul MPV 7 L (7.4-10.4) um3 Neut % (Auto) 66.6 (38-83) % Lymph % (Auto) 26.8 (25-47) % [place] % (Auto) 6.0 (1-9) % Eos % (Auto) 0.1 (0-6) % Baso % (Auto) 0.5 (0-2) % Absolute Neuts (auto) 11.4 H (1.5-7.7) 10^3/ul Absolute Lymphs (auto) 4.6 (1.0-4.8) 10^3/ul Absolute Monos (auto) 1.0 H (0-0.8) 10^3/ul Absolute Eos (auto) 0 (0-0.6) 10^3/ul Absolute Basos (auto) 0.1 (0-0.2) 10^3/ul Absolute Nucleated RBC 0 10^3/ul Nucleated RBC % 0 Sodium 134 (133-145) mmol/L Potassium 3.7 (3.5-5.0) mmol/L Chloride 102 (101-111) mmol/L Carbon Dioxide 26 (22-32) mmol/L Anion Gap 6 (2-11) mmol/L BUN 13 (6-24) mg/dL Creatinine 0.95 (0.51-0.95) mg/dL Est GFR ( Amer) 75.7 (>60) Est GFR (Non-Af Amer) 58.9 (>60) BUN/Creatinine Ratio 13.7 (8-20) Glucose 113 H (70-100) mg/dL Lactic Acid 0.9 (0.5-2.0) mmol/L Calcium 8.7 (8.6-10.3) mg/dL Magnesium 1.9 (1.9-2.7) mg/dL Total Bilirubin 0.70 (0.2-1.0) mg/dL AST 20 (13-39) U/L ALT 14 (7-52) U/L Alkaline Phosphatase 76 (34-104) U/L Troponin I 0.01 (<0.04) ng/mL C-Reactive Protein 32.11 H (< 5.00) mg/L Total Protein 6.4 (6.4-8.9) g/dL Albumin 3.9 (3.2-5.2) g/dL Globulin 2.5 (2-4) g/dL Albumin/Globulin Ratio 1.6 (1-3) Amylase 80 (29-103) U/L Lipase 25 (11.0-82.0) U/L Urine Color Urine Appearance Urine pH (5-9) Ur Specific [place] (1.010-1.030) Urine Protein (Negative) Urine Ketones (Negative) Urine Blood (Negative) Urine Nitrate (Negative) Urine Bilirubin (Negative) Urine Urobilinogen (Negative) Ur Leukocyte Esterase (Negative) Urine WBC (Auto) (Absent) Urine RBC (Auto) (Absent) Ur Squamous Epith Cells (Absent) Urine Bacteria (Absent) Urine Glucose (Negative) 06/08/17 Range/Units 11:28 WBC (3.5-10.8) 10^3/ul RBC (4.0-5.4) 10^6/ul Hgb (12.0-16.0) g/dl Hct (35-47) % MCV (80-97) fL MCH (27-31) pg MCHC (31-36) g/dl RDW (10.5-15) % Plt Count (150-450) 10^3/ul MPV (7.4-10.4) um3 Neut % (Auto) (38-83) % Lymph % (Auto) (25-47) % [place] % (Auto) (1-9) % Eos % (Auto) (0-6) % Baso % (Auto) (0-2) % Absolute Neuts (auto) (1.5-7.7) 10^3/ul Absolute Lymphs (auto) (1.0-4.8) 10^3/ul Absolute Monos (auto) (0-0.8) 10^3/ul Absolute Eos (auto) (0-0.6) 10^3/ul Absolute Basos (auto) (0-0.2) 10^3/ul Absolute Nucleated RBC 10^3/ul Nucleated RBC % Sodium (133-145) mmol/L Potassium (3.5-5.0) mmol/L Chloride (101-111) mmol/L Carbon Dioxide (22-32) mmol/L Anion Gap (2-11) mmol/L BUN (6-24) mg/dL Creatinine (0.51-0.95) mg/dL Est GFR ( Amer) (>60) Est GFR (Non-Af Amer) (>60) BUN/Creatinine Ratio (8-20) Glucose (70-100) mg/dL Lactic Acid (0.5-2.0) mmol/L Calcium (8.6-10.3) mg/dL Magnesium (1.9-2.7) mg/dL Total Bilirubin (0.2-1.0) mg/dL AST (13-39) U/L ALT (7-52) U/L Alkaline Phosphatase (34-104) U/L Troponin I (<0.04) ng/mL C-Reactive Protein (< 5.00) mg/L Total Protein (6.4-8.9) g/dL Albumin (3.2-5.2) g/dL Globulin (2-4) g/dL Albumin/Globulin Ratio (1-3) Amylase (29-103) U/L Lipase (11.0-82.0) U/L Urine Color Straw Urine Appearance Clear Urine pH 6.0 (5-9) Ur Specific [place] 1.004 L (1.010-1.030) Urine Protein Negative (Negative) Urine Ketones Negative (Negative) Urine Blood 2+ H (Negative) Urine Nitrate Negative (Negative) Urine Bilirubin Negative (Negative) Urine Urobilinogen Negative (Negative) Ur Leukocyte Esterase 2+ H (Negative) Urine WBC (Auto) Trace(0-5/hpf) (Absent) Urine RBC (Auto) 1+(3-5/hpf) H (Absent) Ur Squamous Epith Cells Present H (Absent) Urine Bacteria Absent (Absent) Urine Glucose Negative (Negative) Microbiology and Other Data: Microbiology 06/09/17 03:50 Stool Gross Appearance - Final Stool Diagnostic Imaging: CT abd/pelvis: IMPRESSION: LONG SEGMENT SUBMUCOSAL EDEMA IN THE TRANSVERSE COLON EXTENDING TO THE DESCENDING COLON WITH PERICOLONIC INFILTRATION OF FAT SUSPICIOUS FOR COLITIS. ADDITIONALLY THERE ARE DIVERTICULA WITH WALL THICKENING IN THE SIGMOID COLON WHICH MAY REPRESENT UNDERLYING DIVERTICULITIS. NO PERIDIVERTICULAR OR PERICOLONIC ABSCESS IS NOTED. NO FREE FLUID IS NOTED IN THE PELVIS. Assess/Plan/Problems-Billing Assessment: Ms. Castañeda is a 67 yo female with a PMH of intestinal surgery, HTN, anxiety, and COPD who presented to the ED on 06/08/17 with abd pain n/v/d and BRBPR that is secondary to colitis. - Patient Problems (1) Infectious colitis Code(s): A09 - INFECTIOUS GASTROENTERITIS AND COLITIS, UNSPECIFIED Comment: With accompanying n/v/d, BRBPR Pt reports symptoms improving WBC now trending down, afebrile CT abd/pelvis shows inflammatory changes consistent with colitis. Continue IVF, ciprofloxacin, metronidazole Tolerating clear liquids, advance diet as tolerated Stool studies pending (2) HTN (hypertension) Code(s): I10 - ESSENTIAL (PRIMARY) HYPERTENSION Comment: SBP 140s-150s Resume lisinopril. (3) COPD (chronic obstructive pulmonary disease) Code(s): J44.9 - CHRONIC OBSTRUCTIVE PULMONARY DISEASE, UNSPECIFIED Comment: Stable, not in acute exacerbation Continue home Combivent and Asmanex inhalers (4) Anxiety and depression Code(s): F41.8 - OTHER SPECIFIED ANXIETY DISORDERS Comment: Continue bupropion. (5) DVT prophylaxis Comment: SQ heparin Status and Disposition: Inpatient admission. Anticipate LOS >2 days. D/c to home when medically stable.
[2017-06-10] MEDS: BuPROPion XL* 150 MG TAB.XL PO SCH (10:43)
[2017-06-10] MEDS: Lisinopril TAB* 5 MG PO SCH (10:43)
[2017-06-10] MEDS ORDERED: MOMETASONE 220 MCG INH SCH (21:00)
[2017-06-10] MEDS ORDERED: MDI INH SCH (21:00)
[2017-06-11] MEDS: Ciprofloxacin 400MG IVPREMIX(* 400 MG/200 ML BAG IVPB SCH (02:24)
[2017-06-11 04:47] LABS: Hematocrit 38 % (35-47); Hemoglobin 12.5 g/dl (12.0-16.0); Mean Corpuscular HGB Conc 33 g/dl (31-36); Mean Corpuscular Hemoglobin 30 pg (27-31); Mean Corpuscular Volume 90 fL (80-97); Mean Platelet Volume 7 um3 (7.4-10.4); Red Cell Distribution Width 13 % (10.5-15); White Blood Count 12.4 10^3/ul (3.5-10.8)
[2017-06-11 04:48] LABS: Add Diff/Slide Review? Slide Review Added; Comments Flag Yes
[2017-06-11] MEDS: PTO: Albuterol/Ipratropium RESP(NF) MDI (Combivent Respimat) INH SCH ×3 (06:23→14:41)
[2017-06-11] MEDS: Heparin VIAL(*) 5000 UNITS/ML VIAL (FIVE THOUSAND) SUBCUT SCH ×2 (06:56→15:54)
[2017-06-11] MEDS: Lisinopril TAB* 5 MG PO SCH (08:13)
[2017-06-11] MEDS: BuPROPion XL* 150 MG TAB.XL PO SCH (08:13)
[2017-06-11] MEDS: metroNIDAZOLE IV 500 MG/100ML* 500 MG/100 ML BAG IVPB SCH (08:13)
--- NOTE | 2017-06-11 10:34 | PN ---
Subjective Date of Service: 06/11/17 Interval History: Ms. Castañeda is sitting up, reports feeling "so much better" and would like to go home. Denies fever/chills, CP, SOB, n/v. Abd pain is minimal and she is passing a lot of gas. No other acute concerns. Tolerating soft diet. Family History: Unchanged from Admission Social History: Unchanged from Admission Past Medical History: Unchanged from Admission Objective Active Medications: Albuterol (Ventolin Hfa Inhaler*) 2 puff INH Q4H PRN PRN Reason: SOB/WHEEZING Last Admin: 06/09/17 00:39 Dose: 2 puff Albuterol/Ipratropium (Duoneb (Albuterol 2.5 Mg/Ipratropium 0.5 Mg)) 1 neb INH Q6H PRN PRN Reason: SOB/WHEEZING Last Admin: 06/09/17 08:09 Dose: 1 neb Albuterol/Ipratropium (Combivent Respimat(Nf)) 1 puff INH RT.QID [facility] PRN Reason: Protocol Last Admin: 06/11/17 10:25 Dose: 1 puff Bupropion HCl (Wellbutrin Xl *) 150 mg PO DAILY [facility] Last Admin: 06/11/17 08:13 Dose: 150 mg Heparin Sodium (Porcine) (Heparin Vial(*)) 5,000 units SUBCUT Q8HR [facility] Last Admin: 06/11/17 06:56 Dose: 5,000 units Sodium Chloride (Ns 0.9% 1000 Ml*) 1,000 mls @ 100 mls/hr IV PER RATE [facility] Last Admin: 06/09/17 22:00 Dose: 100 mls/hr Ciprofloxacin/Dextrose (Cipro 400 Mg Ivpremix(*)) 400 mg in 200 mls @ 200 mls/ hr IVPB Q12H [facility] Last Admin: 06/11/17 02:24 Dose: 200 mls/hr Metronidazole/Sodium Chloride (Flagyl 500 Mg Ivpb*) 500 mg in 100 mls @ 100 mls /hr IVPB Q8H [facility] Last Admin: 06/11/17 08:13 Dose: 100 mls/hr Lisinopril (Prinivil Tab*) 5 mg PO DAILY [facility] Last Admin: 06/11/17 08:13 Dose: 5 mg Mometasone Furoate (Asmanex 220 Mcg Mdi *) 1 puff INH BEDTIME [facility] PRN Reason: Protocol Last Admin: 06/10/17 19:32 Dose: 1 puff Morphine Sulfate (Morphine Inj (Syringe)*) 4 mg IV Q4H PRN PRN Reason: PAIN Last Admin: 06/08/17 17:05 Dose: 4 mg Ondansetron HCl (Zofran Inj*) 4 mg IV Q4H PRN PRN Reason: nausea Vital Signs 06/10/17 06/10/17 06/10/17 11:01 11:19 14:53 Temperature 99.8 F Pulse Rate 111 97 99 Respiratory 16 19 16 Rate Blood Pressure 140/83 (mmHg) O2 Sat by Pulse 93 95 95 Oximetry 06/10/17 06/10/17 06/10/17 15:49 20:00 20:35 Temperature 98.5 F 97.6 F Pulse Rate 99 98 Respiratory 20 18 20 Rate Blood Pressure 114/69 149/85 (mmHg) O2 Sat by Pulse 95 95 Oximetry 06/10/17 06/11/17 06/11/17 23:32 03:25 06:23 Temperature 98.3 F 98.1 F Pulse Rate 93 89 107 Respiratory 17 17 18 Rate Blood Pressure 139/82 138/72 (mmHg) O2 Sat by Pulse 96 93 96 Oximetry 06/11/17 06/11/17 08:07 10:26 Temperature 98.3 F Pulse Rate 91 104 Respiratory 18 16 Rate Blood Pressure 128/62 (mmHg) O2 Sat by Pulse 92 94 Oximetry Oxygen Devices in Use Now: None Appearance: Female patient, sitting on edge of bed, NAD Eyes: No Scleral Icterus Ears/Nose/Mouth/Throat: Clear Oropharnyx, Mucous Membranes Moist Neck: NL Appearance and Movements; NL JVP Respiratory: Symmetrical Chest Expansion and Respiratory Effort, Clear to Auscultation Cardiovascular: NL Sounds; No Murmurs; No JVD, RRR Abdominal: - - abd soft, mild tenderness with palpation, normoactive BS Extremities: No Edema Neurological: Alert and Oriented x 3, NL Muscle Strength and Tone Lines/Tubes/Other Access: Clean, Dry and Intact Peripheral IV Nutrition: Taking PO's Result Diagrams: 06/11/17 04:41 06/10/17 05:41 Additional Lab and Data: Lab Results 06/08/17 06/08/17 06/08/17 Range/Units 11:11 11:11 11:11 WBC 17.2 H (3.5-10.8) 10^3/ul RBC 5.33 (4.0-5.4) 10^6/ul Hgb 15.3 (12.0-16.0) g/dl Hct 47 (35-47) % MCV 89 (80-97) fL MCH 29 (27-31) pg MCHC 33 (31-36) g/dl RDW 13 (10.5-15) % Plt Count 200 (150-450) 10^3/ul MPV 7 L (7.4-10.4) um3 Neut % (Auto) 66.6 (38-83) % Lymph % (Auto) 26.8 (25-47) % Hamblen % (Auto) 6.0 (1-9) % Eos % (Auto) 0.1 (0-6) % Baso % (Auto) 0.5 (0-2) % Absolute Neuts (auto) 11.4 H (1.5-7.7) 10^3/ul Absolute Lymphs (auto) 4.6 (1.0-4.8) 10^3/ul Absolute Monos (auto) 1.0 H (0-0.8) 10^3/ul Absolute Eos (auto) 0 (0-0.6) 10^3/ul Absolute Basos (auto) 0.1 (0-0.2) 10^3/ul Absolute Nucleated RBC 0 10^3/ul Nucleated RBC % 0 Sodium 134 (133-145) mmol/L Potassium 3.7 (3.5-5.0) mmol/L Chloride 102 (101-111) mmol/L Carbon Dioxide 26 (22-32) mmol/L Anion Gap 6 (2-11) mmol/L BUN 13 (6-24) mg/dL Creatinine 0.95 (0.51-0.95) mg/dL Est GFR ( Amer) 75.7 (>60) Est GFR (Non-Af Amer) 58.9 (>60) BUN/Creatinine Ratio 13.7 (8-20) Glucose 113 H (70-100) mg/dL Lactic Acid 0.9 (0.5-2.0) mmol/L Calcium 8.7 (8.6-10.3) mg/dL Magnesium 1.9 (1.9-2.7) mg/dL Total Bilirubin 0.70 (0.2-1.0) mg/dL AST 20 (13-39) U/L ALT 14 (7-52) U/L Alkaline Phosphatase 76 (34-104) U/L Troponin I 0.01 (<0.04) ng/mL C-Reactive Protein 32.11 H (< 5.00) mg/L Total Protein 6.4 (6.4-8.9) g/dL Albumin 3.9 (3.2-5.2) g/dL Globulin 2.5 (2-4) g/dL Albumin/Globulin Ratio 1.6 (1-3) Amylase 80 (29-103) U/L Lipase 25 (11.0-82.0) U/L Urine Color Urine Appearance Urine pH (5-9) Ur Specific Gore (1.010-1.030) Urine Protein (Negative) Urine Ketones (Negative) Urine Blood (Negative) Urine Nitrate (Negative) Urine Bilirubin (Negative) Urine Urobilinogen (Negative) Ur Leukocyte Esterase (Negative) Urine WBC (Auto) (Absent) Urine RBC (Auto) (Absent) Ur Squamous Epith Cells (Absent) Urine Bacteria (Absent) Urine Glucose (Negative) 06/08/17 Range/Units 11:28 WBC (3.5-10.8) 10^3/ul RBC (4.0-5.4) 10^6/ul Hgb (12.0-16.0) g/dl Hct (35-47) % MCV (80-97) fL MCH (27-31) pg MCHC (31-36) g/dl RDW (10.5-15) % Plt Count (150-450) 10^3/ul MPV (7.4-10.4) um3 Neut % (Auto) (38-83) % Lymph % (Auto) (25-47) % Hamblen % (Auto) (1-9) % Eos % (Auto) (0-6) % Baso % (Auto) (0-2) % Absolute Neuts (auto) (1.5-7.7) 10^3/ul Absolute Lymphs (auto) (1.0-4.8) 10^3/ul Absolute Monos (auto) (0-0.8) 10^3/ul Absolute Eos (auto) (0-0.6) 10^3/ul Absolute Basos (auto) (0-0.2) 10^3/ul Absolute Nucleated RBC 10^3/ul Nucleated RBC % Sodium (133-145) mmol/L Potassium (3.5-5.0) mmol/L Chloride (101-111) mmol/L Carbon Dioxide (22-32) mmol/L Anion Gap (2-11) mmol/L BUN (6-24) mg/dL Creatinine (0.51-0.95) mg/dL Est GFR ( Amer) (>60) Est GFR (Non-Af Amer) (>60) BUN/Creatinine Ratio (8-20) Glucose (70-100) mg/dL Lactic Acid (0.5-2.0) mmol/L Calcium (8.6-10.3) mg/dL Magnesium (1.9-2.7) mg/dL Total Bilirubin (0.2-1.0) mg/dL AST (13-39) U/L ALT (7-52) U/L Alkaline Phosphatase (34-104) U/L Troponin I (<0.04) ng/mL C-Reactive Protein (< 5.00) mg/L Total Protein (6.4-8.9) g/dL Albumin (3.2-5.2) g/dL Globulin (2-4) g/dL Albumin/Globulin Ratio (1-3) Amylase (29-103) U/L Lipase (11.0-82.0) U/L Urine Color Straw Urine Appearance Clear Urine pH 6.0 (5-9) Ur Specific Gore 1.004 L (1.010-1.030) Urine Protein Negative (Negative) Urine Ketones Negative (Negative) Urine Blood 2+ H (Negative) Urine Nitrate Negative (Negative) Urine Bilirubin Negative (Negative) Urine Urobilinogen Negative (Negative) Ur Leukocyte Esterase 2+ H (Negative) Urine WBC (Auto) Trace(0-5/hpf) (Absent) Urine RBC (Auto) 1+(3-5/hpf) H (Absent) Ur Squamous Epith Cells Present H (Absent) Urine Bacteria Absent (Absent) Urine Glucose Negative (Negative) Microbiology and Other Data: Microbiology 06/09/17 03:50 Stool Gross Appearance - Final Stool Diagnostic Imaging: CT abd/pelvis: IMPRESSION: LONG SEGMENT SUBMUCOSAL EDEMA IN THE TRANSVERSE COLON EXTENDING TO THE DESCENDING COLON WITH PERICOLONIC INFILTRATION OF FAT SUSPICIOUS FOR COLITIS. ADDITIONALLY THERE ARE DIVERTICULA WITH WALL THICKENING IN THE SIGMOID COLON WHICH MAY REPRESENT UNDERLYING DIVERTICULITIS. NO PERIDIVERTICULAR OR PERICOLONIC ABSCESS IS NOTED. NO FREE FLUID IS NOTED IN THE PELVIS. Assess/Plan/Problems-Billing Assessment: Ms. Castañeda is a 67 yo female with a PMH of intestinal surgery, HTN, anxiety, and COPD who presented to the ED on 06/08/17 with abd pain n/v/d and BRBPR that is secondary to colitis. - Patient Problems (1) Infectious colitis Code(s): A09 - INFECTIOUS GASTROENTERITIS AND COLITIS, UNSPECIFIED Comment: With accompanying n/v/d, BRBPR Improved, tolerating soft diet WBC trending down, afebrile CT abd/pelvis shows inflammatory changes consistent with colitis. Continue ciprofloxacin and metronidazole to complete 10 day course. (2) HTN (hypertension) Code(s): I10 - ESSENTIAL (PRIMARY) HYPERTENSION Comment: Normotensive Continue lisinopril. (3) COPD (chronic obstructive pulmonary disease) Code(s): J44.9 - CHRONIC OBSTRUCTIVE PULMONARY DISEASE, UNSPECIFIED Comment: Stable, not in acute exacerbation Continue home Combivent and Asmanex inhalers (4) Anxiety and depression Code(s): F41.8 - OTHER SPECIFIED ANXIETY DISORDERS Comment: Continue bupropion. (5) DVT prophylaxis Comment: SQ heparin Status and Disposition: Inpatient admission. D/c to home with outpatient PCP follow-up.
[2017-06-11 15:54] VITALS: BP 125/64
--- NOTE | 2017-06-12 02:41 | DS ---
CC: Dr. Weaver, [facility], [place] * MEDICINE DISCHARGE SUMMARY: DATE OF ADMISSION: 06/08/17 DATE OF DISCHARGE: 06/11/17 PRIMARY CARE PHYSICIAN: Dr. Weaver of [facility] in [place]. PROVIDER: Luis Gaines NP ATTENDING PHYSICIAN: Daysi Rocha MD * (dictated by Luis Gaines NP). PRIMARY DISCHARGE DIAGNOSIS: Colitis. SECONDARY DISCHARGE DIAGNOSES: 1. Hypertension. 2. Chronic obstructive pulmonary disease. 3. Anxiety and depression. HOME MEDICATIONS: At discharge: 1. Combivent Respimat 1 puff inhaled 4 times a day. 2. Asmanex 1 puff inhaled at bedtime. 3. Bupropion 150 mg daily. 4. Lisinopril 5 mg daily. New medications at discharge: 1. Flagyl 500 mg b.i.d. 2. Ciprofloxacin 500 mg b.i.d. HOSPITAL COURSE OF STAY: For full details, please refer to the H and P provided by Tosha Stephens. In summary, Ms. Castañeda is a 67-year-old female, who presented to the hospital with concern for abdominal pain, nausea, vomiting, and bloody diarrhea. Prior to admission, she was in her normal state of health up until 3 days preceding admission where she started to develop abdominal pain in the left upper quadrant with associated nausea and vomiting. The patient reports bright red blood per rectum. She presented to the emergency room with concern for an elevated white blood cell count of 17,000. She was afebrile, but she did have some tachycardia. Her CT showed inflammatory changes extending to the descending colon with pericolonic infiltration and fat suspicious for colitis. There was also concern for possible underlying diverticulitis. The patient was admitted, started on IV fluids and IV Cipro and Flagyl. The patient clinically improved with each day, following initiation of IV antibiotic administration. Her white blood cell count has improved. She has been able to advance her diet. There was concern initially for a urinary tract infection with the patient's UA showing 2+ blood and 2+ leukocyte esterase. However, her urine culture did not grow any significant bacteria. We did send stool studies, which were negative for E. coli, Shiga toxin and her culture did not grow any enteric pathogens. On the day of discharge, the patient's vital signs are stable. Again she has been afebrile. Her leukocytosis has improved and mostly resolved. She is not requiring any additional pain medication but does have tramadol at home as needed for pain; she has not required pain medications since 06/08/17. She has not required antinausea medication. She has been instructed to follow up with her PCP and to monitor for any signs of fevers or chills at home, as well as worsening abdominal pain and intractable nausea vomiting, and to seek medical evaluation for return of abdominal pain or other symptoms of concern. CONCERNS AT DISCHARGE: Ms. Castañeda is discharged to home on 06/11/17. She is to follow up with her PCP, appointment pending. DIET: Soft bland diet, advance as tolerated. ACTIVITY: As tolerated. CONDITION: Stable. DISPOSITION: To home. TIME SPENT: Time spent on this discharge was approximately 45 minutes. Again, this is only a brief summary of the patient's hospital course of stay. For full details, please refer to the full medical record. If you have any further questions or need further assistance, please feel free to contact me at . LUIS GAINES NP [id number]/[facility] #: [id number] APRIL
== END 2017-06-11 16:15 | disposition home or self-care (01) | DRG 392 ==
LOC: ED 09:28 → MED 15:15
PROVIDERS: ADMIT Internal Medicine; ATTEND Internal Medicine
DX: A09 Infectious gastroenteritis and colitis, unspecified (principal); J44.9 Chronic obstructive pulmonary disease, unspecified; I10 Essential (primary) hypertension; K62.5 Hemorrhage of anus and rectum; K57.32 Diverticulitis of large intestine without perforation or abscess without bleeding; F41.9 Anxiety disorder, unspecified; F32.9 Major depressive disorder, single episode, unspecified; E78.00 Pure hypercholesterolemia, unspecified; Z90.710 Acquired absence of both cervix and uterus; Z85.828 Personal history of other malignant neoplasm of skin; Z88.8 Allergy status to other drugs, medicaments and biological substances; Z88.1 Allergy status to other antibiotic agents; Z80.3 Family history of malignant neoplasm of breast; Z80.41 Family history of malignant neoplasm of ovary; Z80.49 Family history of malignant neoplasm of other genital organs; Z80.6 Family history of leukemia; Z87.891 Personal history of nicotine dependence
CPT/HCPCS: 36415; 74177; 80048; 80053; 81003; 81015; 82150; 83605; 83690; 83735; 84484; 85025; 86140; 87045; 87046; 87077; 87086; 87899; 93005; 94640; 94760; A9270-GY; J0744; J1644; J2270; J2405; J2765; Q9967